=== PATIENT | female | born 1945 | race Caucasian/White ===

== ENCOUNTER 2021-03-16 11:41 | Emergency (ER) | payer SELFPAY ==
[2021-03-16 12:57] VITALS: BP 120/71; PULSE 109; TEMP 99.3; BMI 21.7
== END 2021-03-16 13:42 | disposition home or self-care (01) ==
LOC: FER 11:41
DX: S93.421A Sprain of deltoid ligament of right ankle, initial encounter (principal); X50.0XXA Overexertion from strenuous movement or load, initial encounter; Y93.01 Activity, walking, marching and hiking
CPT/HCPCS: 73610-TC-RT-FY; 73630-TC-RT-FY; 99283-25